=== PATIENT | female | born 1965 | race Caucasian/White ===

== ENCOUNTER 2024-02-16 01:22 | Emergency (ER) | payer OTHER, SELFPAY ==
[2024-02-16 01:24] VITALS: BP 159/89
[2024-02-16 04:06] VITALS: BP 140/92; BMI 42.8
[2024-02-16 04:13] LABS: % Basophils 0.6 % (0-2); % Immature Granulocytes 0.3 % (0-0.5); % Lymphocytes 16.6 % (20.5-51.1); % Monocytes 5.9 % (1.7-9.3); % Neutrophils 74.6 % (42.2-75.2); Absolute Basophils 0.1 10^3/uL (0-0.2); Absolute Eosinophils 0.2 10^3/uL (0-0.7); Absolute Lymphocytes 1.7 10^3/uL (1.2-3.4); Absolute Monocytes 0.6 10^3/uL (0.1-0.6); Absolute Neutrophils 7.5 10^3/uL (1.4-6.5); Hemoglobin 12.4 g/dL (12.0-16.0); Mean Corp Hgb Conc. 34.4 g/dL (33.0-37.0); Mean Corpuscular Hgb 31.1 pg (27.0-31.0); Mean Corpuscular Volume 90.2 fL (81.0-99.0); Mean Platelet Volume 9.8 fL (7.4-10.4); Nucleated Red Blood Cells % 0 %; Platelet Count 297 10^3/uL (130-400); Red Blood Cell Count 3.99 10^6/uL (4.20-5.40); Red Cell Dist. Width 14.8 % (11.5-14.5)
[2024-02-16 04:14] LABS: Urine Albumin Negative (Neg - Trace); Urine Bilirubin Negative (Negative); Urine Character Clear (Clear); Urine Color Yellow; Urine Glucose Negative (Negative); Urine Ketone Negative (Negative); Urine Leukocyte Trace (Negative); Urine Nitrite Negative (Negative); Urine Occult Blood Negative (Negative); Urine Urobilinogen Negative (Neg - 1+)
--- NOTE | 2024-02-16 04:16 | ED.GENMED ---
History of Present Illness
General
Chief Complaint: Abdominal Pain
Source: patient and family
Exam Limitations: none
Time Seen by Provider: 02/16/24 03:47
Nursing documentation reviewed up to this point in time: agreed with
Travel History
Have you had any contact with someone who has COVID-19?: No
Do you have any symptoms of coronavirus? Fever > 100 degrees, chills, cough, shortness of breath, sore throat, loss of taste or smell, muscle aches, or headache?: No
History of Present Illness
History of Present Illness:
This a pleasant 58-year-old female who presents with right-sided low back pain that wraps around to her front. She states that the pain is intermittent and colicky. She denies fever, chills, chest pain, or shortness of breath. She does report
some nausea with the increase in pain. Denies any urinary symptoms. Patient has a history of partial hysterectomy in early . She has not had a menstrual cycle since. She denies any obvious hematuria.
Past History
Past History
ED Past Medical History: Asthma
ED Past Surgical History: Gynecological and Orthopedic
Social History
Tobacco: Smoker
Alcohol: None
Drug: None
Living: with family
Review of Systems
Review of Systems
Allergies reviewed?: Yes
Other source history: family
All Other Systems: ROS reviewed and negative except as documented in HPI and ROS
Constitutional: Reports no symptoms
EENT: Reports no symptoms
Respiratory: Reports no symptoms
Cardiac: Reports no symptoms
ABD/GI: Reports no symptoms
: Reports flank pain; Denies dysuria, frequency, urgency or bleeding
Musculoskeletal: Reports back pain
Skin: Reports no symptoms
Neurological: Reports no symptoms
Endocrine: Reports no symptoms
Hematologic/Lymphatic: Reports no symptoms
Psychiatric: Reports no symptoms
Phy Exam
General Physical Exam
General Presentation: well appearing and no apparent distress
General Skin: warm and dry
General Habitus: normal
General Mental: alert
General Hydration: appears well hydrated
ENT Exam
ENT Exam: EOMI, pharynx normal, neck supple and normocephalic
Eye Exam
Eye Exam: PERRL, cornea clear and conjunctiva normal
Cardiovascular Exam
Cardiovascular Exam: regular rate/rhythm, no edema, no murmur and normal peripheral pulses
Pulmonary Exam
Pulmonary Exam: lungs clear, no respiratory distress, no rales, no crackles, no rhonchi, no stridor, no wheezing and no cough
Gastrointestinal Exam
Gastrointestinal Exam: normal bowel sounds, non tender, soft, no organomegaly, no pulsatile mass and non distended
Neurological Exam
Neurological Exam: alert and oriented x3
Musculoskeletal Exam
Musculoskeletal Exam: back tenderness and neuro vasc intact
Skin Exam
Skin Exam: normal color, warm/dry, no rash and no petechia
Psychiatric Exam
Psychiatric Exam: normal mood/affect
Course
Orders/Labs/Results
Orders:
Orders
02/16/24 03:36
Test Result ONCE
02/16/24 04:03
Complete Blood Count/With Diff Urgent
Urinalysis Reflex To Culture Urgent
Date Specimen was Collected: 02/16/24
Time Specimen was Collected: 03:40
Urine Microscopic Reflex Cult Urgent
02/16/24 04:27
Comprehensive Metabolic Panel Urgent
HCG, Serum Qualitative Screen Urgent
Comment: REDRAW
Lipase Urgent
02/16/24 04:44
CT Abd/pelvis W Iv Cont Urgent
Comment:
Reason For Exam: R flank pain
02/16/24 06:14
Oxycodone/Acetaminophen [Percocet 5/325] 1 tablet PO NOW STA
02/16/24 06:21
Ketorolac [Toradol] 30 mg IM NOW STA
Abnormal Lab Results
02/16/24 02/16/24
04:03 04:27
RBC 3.99 L 10^6/uL
(4.20-5.40)
Hct 36.0 L %
(37.0-47.0)
MCH 31.1 H pg
(27.0-31.0)
RDW 14.8 H %
(11.5-14.5)
Absolute Neuts (auto) 7.5 H 10^3/uL
(1.4-6.5)
Lymphocytes % 16.6 L %
(20.5-51.1)
Chloride 109 H mmol/L
(98-107)
Carbon Dioxide 21 L mmol/L
(22-30)
Glucose 116 H mg/dl
(70-99)
Alkaline Phosphatase 130 H U/L
(38-126)
Leukocyte Esterase Rfl Trace A
(Negative)
Urine Bacteria (Reflex) Few A
(Negative)
02/16/24 04:03
02/16/24 04:27
Vital Signs
Initial and Last Documented VS:
Initial Vital Signs
Temp Pulse Resp BP Pulse Ox
98.0 F 93 16 159/89 98
02/16/24 01:24 02/16/24 01:24 02/16/24 01:24 02/16/24 01:24 02/16/24 01:24
Last Documented Vital Signs
Temp Pulse Resp BP Pulse Ox
98.0 F 85 16 144/72 94
02/16/24 01:24 02/16/24 04:06 02/16/24 04:06 02/16/24 05:00 02/16/24 05:15
*Critical Care Note
Total Time (30-74mins, 75-104mins- exclusive of procedures): Not Applicable
Update Note
Update Note:
CT A/P W/IV CONTRAST
IMPRESSION:
Comparison with 7/10/23.
No definite CT findings to account for the reported pain/symptoms.
No appendicitis or colitis.
No evidence of small bowel obstruction.
No free fluid or free air.
Cholecystectomy. Unremarkable CT appearance of the biliary tract and pancreas.
No evidence of hydroureteronephrosis or obstructing stone.
Unremarkable appearance of the pelvic viscera.
No AAA.
Case finalized at 606am ET.
ED Attending Note
-
Portions of this chart may have been created with voice recognition software.� Occasional wrong word or��sound alike� substitutions may have occurred due to the inherent limitations of voice recognition software.
Discharge Plan
Departure
Patient Disposition: Home (Routine Discharge)
Date of Disposition: 02/16/24
Time of Disposition: 06:18
Patient with high blood pressure during this ER visit?: Yes
Condition: Good
Discharge Problem:
Low back pain
Instructions: Low Back Pain ED, BLOOD PRESSURE
Prescriptions:
New
hydrocodone-acetaminophen 5-325 mg tablet
1 tab PO Q8H PRN (Reason: Pain) Qty: 10 0RF
ondansetron 4 mg tablet,disintegrating
4 mg PO TID Qty: 10 0RF
No Action
fluticasone propion-salmeterol [Advair Diskus] 1 DISK blister with device
1 puff inhalation DAILY AT 0700
albuterol sulfate [Ventolin HFA] 90 MCG/PUFF HFA aerosol inhaler
1 puff inhalation PRN PRN (Reason: shortness of breath)
Referrals:
Logan Taylor DO [Family Provider] -
Activity Restrictions/Additional Instructions:
Your prescriptions were sent electronically to the pharmacy that you specified.
It was a pleasure meeting you and taking part in your care. We hope for your continued healing and wellness.
Please read discharge instructions in their entirety. However, they are for general education and may not describe your exact diagnosis at discharge. Information on your ER visit and medical conditions were discussed with you along with appropriate
follow up information...
If indicated, please take your medications as instructed and indicated on discharge paperwork.
Please schedule a follow up appointment as directed. Call to schedule an appointment
Please return to the emergency department with ANY change in, persisting, or worsening of symptoms. If any of your symptoms do not improve, or persist, or become more severe within 6-12 hours, please return to the emergency department for further
care.
Please return to the emergency department if you develop a headache, neck pain/stiffness, fever greater than 100.4F, chest pain, shortness of breath, persistent nausea, vomiting, slurred speech, difficulty walking, numbness/tingling, weakness, signs
of infection or any other symptoms that are worrisome to you.
If you have any questions or concerns please do not hesitate to call the Hospital at or E-mail me directly at [email or web address]
Interventions
Interventions:
*Risk Screen - Suicide Last Done: 02/16/24 01:24
*General Assessment Last Done: 02/16/24 01:24
*Neglect/Abuse Screening Last Done: 02/16/24 01:24
ED- Fall Risk Assessment Last Done: 02/16/24 01:24
*ED COVID-19 Vaccine History Last Done: 02/16/24 01:24
LL-Pzevuy-Rgipbrbdpv Assessment Last Done: 02/16/24 04:06
Discharge Date and Time
Print Language: SYRIAC
[2024-02-16 04:52] LABS: HCG, Serum Qualitative Screen Negative
[2024-02-16 04:54] LABS: ALT (SGPT) 20 U/L (0-35); AST (SGOT) 21 U/L (14-36); Albumin 4.1 g/dl (3.5-5.0); Alkaline Phosphatase 130 U/L (38-126); Blood Urea Nitrogen 12 mg/dl (7-17); Calcium 9.4 mg/dl (8.4-10.2); Carbon Dioxide 21 mmol/L (22-30); Chloride 109 mmol/L (98-107); Estimated Creatinine Clearance 117 ml/min; Glucose 116 mg/dl (70-99); Lipase 36 U/L (23-300); Potassium 4.4 mmol/L (3.5-5.1); Sodium 136 mmol/L (135-145); Total Bilirubin 0.3 mg/dl (0.2-1.3); Total Protein 7.2 g/dl (6.3-8.2); eGFR > 60.00
[2024-02-16 05:00] VITALS: BP 144/72
[2024-02-16 05:08] LABS: Urine Squamous Cell >30 /LPF (Few)
[2024-02-16 05:09] LABS: Urine Bacteria Few (Negative); Urine Red Blood Cell None Seen /HPF (0-2)
[2024-02-16] MEDS: TORADOL 30 MG IM (06:30)
== END 2024-02-16 06:56 | disposition home or self-care (01) ==
LOC: EMR 01:22
PROVIDERS: EMERGENCY PHYSICIAN Student in an Organized Health Care Education/Training Program; FAMILY PHYSICIAN Family Medicine
DX: M54.50 Low back pain, unspecified (principal); F17.200 Nicotine dependence, unspecified, uncomplicated; R03.0 Elevated blood-pressure reading, without diagnosis of hypertension
CPT/HCPCS: 99285; 96372; 74177; 80053; 81003; 81015; 83690; 84703; 85025; Q9967